=== PATIENT | female | born 1985 | race Caucasian/White ===

== ENCOUNTER 2019-04-16 16:19 | Emergency (ER) | payer OTHER ==
[~2019-04-16] VITALS: Ht 167.6 cm; Wt 112.9 kg
[2019-04-16 16:48] VITALS: BP 122/80
--- NOTE | 2019-04-16 18:03 | NUR ---
C/O BURNING PAIN STARTED 5 DAYS AGO, THEN BLISTERS APPEARED 3 DAYS AGO--- YESTERDAY NOTED SAME ON PLANTAR FEET DENIES WORKING OR USING CHEMICALS OR ANY NEW PROJECTS WHICH REQUIRE GLUE OR ANY SUBSTANCES--- ADMITS HAS AN OFFICE JOB WITH ANGIE COVARRUBIAS'S HAS BEEN SEEN IN 2 OTHER HOSPITALS--
[2019-04-16] MEDS ORDERED: NACL 0.9% 1,000 ML IV ONE (18:20)
--- NOTE | 2019-04-16 18:42 | NUR ---
MENDOZA KAYDEN BLOOD FOR LAB AT IV START---BLOOD HANDED TO LAB
[2019-04-16 19:06] LABS: BASOPHILS % (AUTO) 0.6 % (0.0-2.0); EOSINOPHILS # (AUTO) 0.2 K/uL (0-0.4); EOSINOPHILS % (AUTO) 2.1 % (0.0-4.0); HEMATOCRIT 38.3 % (36-48); HEMOGLOBIN 12.9 g/dL (12.0-16.0); LYMPHOCYTES # (AUTO) 2.8 K/uL (2.5-16.5); LYMPHOCYTES % (AUTO) 34.3 % (20.5-51.1); MEAN CORPUSCULAR HEMOGLOBIN 28 pg (27-31); MEAN CORPUSCULAR HGB CONC 34 g/dL (33-37); MEAN CORPUSCULAR VOLUME 82.2 fL (80-94); MONOCYTES # (AUTO) 0.7 K/uL (0.8-1.0); MONOCYTES % (AUTO) 8.2 % (1.7-9.3); NEUTROPHILS # (AUTO) 4.4 K/uL (1.8-7.7); NEUTROPHILS % (AUTO) 54.8 % (42.2-75.2); PLATELET COUNT (AUTO) 188 K/uL (140-450); RED BLOOD CELL COUNT(AUTO) 4.66 MIL/uL (4.20-5.40); RED CELL DISTRIBUTION WIDTH 15.5 % (11.6-13.7); WHITE BLOOD COUNT (AUTO) 8.1 K/uL (4.8-10.8)
[2019-04-16 19:21] LABS: ANION GAP 15.6 (8-16); CARBON DIOXIDE 24.5 mmol/L (21-32); CREATININE 0.7 mg/dL (0.6-1.3); POTASSIUM 4.1 mmol/L (3.5-5.1)
[2019-04-16 19:23] LABS: PROTHROMBIN TIME 9.5 secs (10.8-13.4)
[2019-04-16 19:27] LABS: ALBUMIN 3.5 g/dL (3.4-5.0); TOTAL BILIRUBIN 1.1 mg/dL (0.0-1.0)
--- NOTE | 2019-04-16 19:48 | NUR ---
RECEIVED REPORT FROM CONFIGURATION RELEASE MANAGER; PT AAOX4 DENIES ACUTE PAIN/SOB. PT HAS MULTIPLE RED DISCOLORED SPOTS ON HANDS AND FEET. DENIES ALLEGIES. DENIES NEW MEDICATION/FOOD/CHEMICAL EXPOSURE. LISA LOCKED IN LOWEST POSITION. WILL CONTINUE TO OBSERVE.
[2019-04-16] MEDS ORDERED: methylPREDNISolone SS 125 MG/2 ML VIAL IVP ONE (20:05)
--- NOTE | 2019-04-16 20:42 | NUR ---
Patient discharged with v/s stable. Written and verbal after care instructions given and explained BY DR PARRA. Patient alert, oriented and verbalized understanding of instructions. Ambulatory with steady gait. All questions addressed prior to discharge BY DR PARRA. ID band removed. Patient advised to follow up with PMD. Rx of PREDNISONE given. Patient educated on indication of medication including possible reaction and side effects BY DR PARRA. Opportunity to ask questions provided and answered.
[2019-04-16] MEDS ORDERED: DOXYCYCLINE 100 MG in DEXTROSE 5% 100 ML IV SCH (21:00)
[2019-04-16 21:19] VITALS: BP 136/72
[2019-04-20 10:01] LABS: RAPID PLASMA REAGIN NON-REACTIVE (Non Reactiv)
== END 2019-04-16 20:42 | disposition home or self-care (01) ==
LOC: MED 16:19
DX: I77.6 Arteritis, unspecified (principal); E11.40 Type 2 diabetes mellitus with diabetic neuropathy, unspecified
CPT/HCPCS: 36415; 80053; 83605; 84703; 85025; 85610; 86592; 87040; 96365; 96375; 99283; J2930; J3490; J7030; J7060

== ENCOUNTER 2019-05-29 22:56 | Emergency (ER) | payer OTHER ==
[~2019-05-29] VITALS: Ht 167.6 cm; Wt 111.1 kg
[2019-05-29 23:01] VITALS: BP 151/84
--- NOTE | 2019-05-29 23:06 | NUR ---
PT AMBULATED TO LOBBY WITH STEADY GAIT.
--- NOTE | 2019-05-29 23:39 | NUR ---
33 Y/O FEMALE PRESENTS TO ED, C/O PAIN LOCATED UNDER RIGHT BREAST. PT STATES LUMPS STARTED APPEARING ON TUESDAY AND HAS INCREASED SINCE THEN ALONG WITH MULTIPLE LUMPS. STATES PAIN WORSENS WHEN PT MOVES ARM UP. PT DENIES ANY ABNORMAL DISCHARGE. DENIES TAKING ANY MEDICATIONS FOR PAIN. PT DENIES ANY N/V/D. NO SOB/CHEST PAIN NOTED. PT AT STABLE CONDITION. ERMD AWARE. WILL CONTINUE TO MONITOR.
[2019-05-30] MEDS: IBUPROFEN 800 MG TAB PO ONE (00:09)
[2019-05-30] MEDS: SULFAMETH/TRIMETH DS 800/160MG 1 TAB PO ONE (00:09)
[2019-05-30] MEDS: CEPHALEXIN 500 MG CAP PO ONE (00:10)
[2019-05-30 00:15] VITALS: BP 147/75
--- NOTE | 2019-05-30 00:15 | NUR ---
PT DISCHARGED WITH PAPERWORK. RX KEFLEX, MOTRIN, BACTRIM. EDUCATED PT REGARDING MEDICATIONS AND S/E. EDUCATED PT REGARDING D/C DIAGNOSIS AND INSTRUCTIONS. PT VERBALIZED UNDERSTANDING OF TEACHING. TOLD PT TO FOLLOW UP WITH PCP AND WHEN TO RETURN TO ED. PT STABLE CONDITION. ALL QUESTIONS ANSWERED.
== END 2019-05-30 00:15 | disposition home or self-care (01) ==
LOC: MED 22:56
DX: N61.0 Mastitis without abscess (principal); E11.9 Type 2 diabetes mellitus without complications
CPT/HCPCS: 99284

== ENCOUNTER 2020-06-10 19:54 | Observation (INO) | payer OTHER, SELFPAY ==
[~2020-06-10] VITALS: Ht 167.6 cm; Wt 111.1 kg
--- NOTE | 2020-06-10 19:58 | NUR ---
Jevon zuniga in [facility] - 06/10/20 at 2204 by MAYRA RN AT [facility] [place]
[2020-06-10 21:08] VITALS: BP 151/95
--- NOTE | 2020-06-10 21:08 | NUR ---
PT TAKEN TO ER BED 6 W/ STEADY GAIT.
--- NOTE | 2020-06-10 21:13 | NUR ---
HORACE DELGADO AT BEDSIDE FOR MEDICAL EVALUATION
--- NOTE | 2020-06-10 21:15 | NUR ---
34 Y/O FEMALE PRESENTED TO THE ED C/O 04/19 PAIN IN HER RIGHT HIPX4 DAYS, PT STATES THE PAIN SHARP AND SHOOTING WHEN AMBULATING. PT DENIES INJURY OR TRAUMA TO THE AREA. NO VISIBLE REDNESS OR SWELLING TO THE AREA. RIGHT HIP AREA IS TENDER TO TOUCH. CMS INTACT. +2 PEDAL PULSES. PT C/O FEVER THAT STARTED TUESDAY. CLEAR LUNG SOUNDS BILATERALLY. DENIES N/V DIARRHEA. PT IS NOT IN ANY ACUTE DISTRESS AT THIS TIME PMH: HERBERT CANELA
--- NOTE | 2020-06-10 21:25 | NUR ---
BLOOD CULTURES AND LABS COLLECTED AND HANDED TO LAB.
[2020-06-10 21:35] LABS: BASOPHILS % (AUTO) 0.3 % (0.0-2.0); EOSINOPHILS # (AUTO) 0.1 K/uL (0-0.4); EOSINOPHILS % (AUTO) 0.9 % (0.0-4.0); HEMATOCRIT 37.4 % (36-48); HEMOGLOBIN 12.7 g/dL (12.0-16.0); LYMPHOCYTES # (AUTO) 2.2 K/uL (2.5-16.5); LYMPHOCYTES % (AUTO) 20.4 % (20.5-51.1); MEAN CORPUSCULAR HEMOGLOBIN 28 pg (27-31); MEAN CORPUSCULAR HGB CONC 34 g/dL (33-37); MEAN CORPUSCULAR VOLUME 81.8 fL (80-94); NEUTROPHILS # (AUTO) 7.6 K/uL (1.8-7.7); NEUTROPHILS % (AUTO) 69.4 % (42.2-75.2); PLATELET COUNT (AUTO) 223 K/uL (140-450); RED BLOOD CELL COUNT(AUTO) 4.57 MIL/uL (4.20-5.40); RED CELL DISTRIBUTION WIDTH 15.8 % (11.6-13.7)
--- NOTE | 2020-06-10 21:48 | NUR ---
ambulated to ed restroom with steady gait
--- NOTE | 2020-06-10 21:51 | NUR ---
PT AMBULATED BACK TO ED BED 6 WITH STEADY GAIT
[2020-06-10 21:53] LABS: PROTHROMBIN TIME 10.4 secs (10.8-13.4)
--- NOTE | 2020-06-10 21:58 | NUR ---
RN AT BEDSIDE FOR EKG
[2020-06-10 21:59] LABS: ALBUMIN 3.6 g/dL (3.4-5.0); ANION GAP 12.4 (8-16); CARBON DIOXIDE 27.5 mmol/L (21-32); CREATININE 1.1 mg/dL (0.6-1.3); POTASSIUM 3.9 mmol/L (3.5-5.1); TOTAL BILIRUBIN 1.7 mg/dL (0.0-1.0)
--- NOTE | 2020-06-10 22:11 | NUR ---
pt pulse ox 98% on Room Air , no oxygen needed at this time.
--- NOTE | 2020-06-10 22:13 | NUR ---
XRAY AT BEDSIDE
--- NOTE | 2020-06-10 22:14 | NUR ---
GLUCOSE-490 ERPA PATEL MADE AWARE
[2020-06-10] MEDS ORDERED: NACL 0.9% 1,000 ML IV ONE ×2 (22:15→23:50)
--- NOTE | 2020-06-10 22:41 | NUR ---
COVID SWAB ÁNGEL PEREZ
--- NOTE | 2020-06-10 22:47 | NUR ---
ÁNGEL FALCON WALKED OVER TO LAB
--- NOTE | 2020-06-10 23:15 | NUR ---
LACTIC ACID-2.8 ERMD DANNY MADE AWARE
--- NOTE | 2020-06-10 23:44 | NUR ---
jasbir roque at bedside for re-evaluation
[2020-06-10] MEDS ORDERED: MORPHINE SULFATE 4 MG/ML SYR IVP ONE (23:45)
--- NOTE | 2020-06-11 00:05 | NUR ---
LAB AT BEDSIDE
--- NOTE | 2020-06-11 00:20 | NUR ---
PT TAKEN TO CT VIA W/C
--- NOTE | 2020-06-11 00:30 | NUR ---
PT RETURNED TO CT VIA W/C
--- NOTE | 2020-06-11 00:39 | NUR ---
HORACE BRACKEN AT BEDSIDE WITH ULTRASOUND MACHINE
--- NOTE | 2020-06-11 01:15 | NUR ---
PT IS LAYING ON HER LEFT SIDE. THIS IS THE MOST COMFORTABLE POSITION FOR THE PT AT THIS TIME. PT IS CONNECTED TO THE ROTARY ROCK DRILLING MACHINE OPERATOR. PT IS ON HER PHONE AND NOT IN ANY ACUTE DISTRESS AT THIS TIME. WILL CONTINUE TO MONITOR.
[2020-06-11] MEDS ORDERED: PIPERACILLIN/TAZOBACTAM 3.375 GM in DEXTROSE 5% 50 ML IV ONE (01:55)
[2020-06-11] MEDS ORDERED: VANCOMYCIN 1,000 MG in DEXTROSE 5% 250 ML IV ONE (01:55)
--- NOTE | 2020-06-11 01:56 | NUR ---
ERMD AT BEDSIDE FOR MEDICAL EVALUATION.
[2020-06-11] MEDS ORDERED: PIPERACILLIN/TAZOBACTAM 3.375 GM VIAL IV ONE (02:02)
--- NOTE | 2020-06-11 02:14 | NUR ---
[facility]OKE W[facility] FOR VERIFICATION OF MEDICATION.
--- NOTE | 2020-06-11 02:25 | NUR ---
PT IS SITTING UPRIGHT WITH HOB ELEVATED. THIS IS THE MOST COMFORTABLE POSITION FOR THE PT AT THIS TIME. PT IS CONNECTED TO THE TRANSITIONS RN CARE COORDINATOR SAO2@99% ROOM AIR. PT IS ON HER PHONE AND NOT IN ANY ACUTE DISTRESS AT THIS TIME. WILL CONTINUE TO MONITOR.
[2020-06-11] MEDS ORDERED: VANCOMYCIN 1,000 MG VIAL ONE (02:33)
--- NOTE | 2020-06-11 02:37 | NUR ---
SPOKE WITH BRYANNA THE SPECIAL EVENTS DRIVER FROM [facility]. SHE IS UNABLE TO PROVIDE ME WITH AN AUTHORIZATION NUMBER AT THIS TIME. DR. DELGADO STATED THAT THE PT IS UNSTABLE FOR DISCHARGE THEREFORE THEIR DR WILL CALL FOR CLINICAL CONFIRMATION THAT THE PT IS CURRENTLY UNSTABLE FOR TRANSPORT
[2020-06-11] MEDS ORDERED: MORPHINE SULFATE 4 MG/ML SYR IVP ONE (02:50)
[2020-06-11] MEDS ORDERED: KETOROLAC 30 MG/ML VIAL IVP ONE (02:50)
--- NOTE | 2020-06-11 03:30 | NUR ---
PT IS SITTING ON THE CHAIR BEDSIDE THE BED WITH HER FEET RAISED ON THE BED. PT IS ON HER PHONE AND NOT IN ANY ACUTE DISTRESS AT THIS TIME. THIS IS THE MOST COMFORTABLE POSITION FOR THE PT AT THIS TIME. PT IS CONNECTED TO THE EMERGENCY MANAGEMENT SPECIALIST. WILL CONTINUE TO MONITOR.
[2020-06-11] MEDS ORDERED: FLUO10CA21 PO (03:31)
[2020-06-11] MEDS ORDERED: ACETAMINOPHEN 325 MG TAB PO PRN (03:55)
[2020-06-11] MEDS ORDERED: ONDANSETRON 4 MG/2 ML VIAL IVP PRN (03:55)
[2020-06-11] MEDS ORDERED: VANCOMYCIN PER PHARMACY MC PRN (03:55)
[2020-06-11] MEDS ORDERED: MORPHINE SULFATE 2 MG/ML SYR IVP PRN (03:55)
--- NOTE | 2020-06-11 04:01 | NUR ---
NOVAL (ORAL) PCR SWAB COLLECTED AND SENT TO LAB.
--- NOTE | 2020-06-11 05:00 | NUR ---
PT IS SITTING ON THE CHAIR BEDSIDE THE BED WITH HER FEET RAISED ON THE BED. PT IS ON HER PHONE AND NOT IN ANY ACUTE DISTRESS AT THIS TIME. PT IS AWAITING NEWS ON IF SHE WILL BE TRANSFERED OR WILL BE ADMITTED HER TO MED SURG. THIS IS THE MOST COMFORTABLE POSITION FOR THE PT AT THIS TIME. PT IS CONNECTED TO THE INSURANCE CONSULTANT. WILL CONTINUE TO MONITOR.
--- NOTE | 2020-06-11 06:10 | NUR ---
PT IS LAYING ON HER BACK WITH HOB ELEVATED. PT IS RESTING WITH VISIBLE RISE AND FALL OF CHEST NOTED. THIS IS THE MOST COMFORTABLE POSITION FOR THE PT AT THIS TIME. PT IS CONNECTED TO THE FIELD ACCOUNT MANAGER, SAO2 @96%. WILL CONTINUE TO MONITOR.
--- NOTE | 2020-06-11 07:13 | NUR ---
REPORT GIVEN TO YARI RAMOS FOR TRANSFER OF CARE.
--- NOTE | 2020-06-11 07:14 | NUR ---
Transfer of care at this time from YARI Pagan
--- NOTE | 2020-06-11 07:23 | NUR ---
Pt VS WNL, pt denies pain at this time. All needs met at this time.
--- NOTE | 2020-06-11 08:32 | NUR ---
PT SITTING UP IN BED EATING BREAKFAST.
--- NOTE | 2020-06-11 08:52 | NUR ---
Dr. Venegas is evaluating the patient at bedside.
--- NOTE | 2020-06-11 09:48 | NUR ---
US at bedside for exam.
--- NOTE | 2020-06-11 10:14 | NUR ---
PT REQUESTING TO GET BRUSH FROM CAR, PT AMBULATED TO CAR WITH CYNTHIA AND RETURNED TO BED 6..
--- NOTE | 2020-06-11 11:11 | NUR ---
PT ASLEEP IN BED. RR EVEN AND UNLABORED, BED IN LOWEST POSITION. SIDE RAIL UP X 1.
--- NOTE | 2020-06-11 11:24 | NUR ---
SOCIAL WORK NOTE: Patient's Orientation Unable To Assess Information Provided By THI SOW - MOTHER Comments SW WAS UNABLE TO MEET PATIENT AT BEDSIDE DUE TO MEDICAL CONDITION. SW COMPLETED ASSESSMENT WITH PATIENT'S MOTHER. SW VERIFIED DEMOGRAPHICS. Gear Roller, Realtionship and Phone Number THI LUIS [phone] Healthcare Power of Tunnel Kiln Firer No Does Patient Have a POLST No Identifying Problems No Social Work Triggers Is A Social Work Consult Needed No Mandate Report Filed No Explanation Of Identifying Problems PATIENT IS A 34-YEAR-OLD FEMALE ADMITTED FOR RIGHT HIP PAIN. PATIENT HAS NO PMHX. PER MOTHER, PATIENT HAS NO HISTORY OF MENTAL HEALTH OR SUBSTANCE ABUSE. Admitted From Home Pre-Admission Level Of Functioning Status Independent/Ambulatory Prior Resources/Services Used In Last 12 Months No Prior Resources Used Prior DME No Prior DME Used Dialysis Comments N/A Living Situation Apartment Lives With Spouse Patient Had Caregiver No Home Support No Caregiver Issues Financial Issues No Known Financial Issue Referral To The Financial Counselor Needed No Factors/Needs No D/C Needs Identified Explanation And Or Other Factors Affecting/Possible DC Needs PATIENT'S MOTHER STATED SHE WOULD PROVIDE TRANSPORTATION FOR PATIENT. Discharge Plan Comments TENTATIVE DISCHARGE PLAN IS FOR PATIENT TO RETURN HOME. DC Plan Status Initiated
--- NOTE | 2020-06-11 11:44 | NUR ---
DR. WEBSTER CALLED AT [phone] WITH PTS US RESULTS. PER DR. WEBSTER "NOTHING TO BE DONE SURGICALLY, PT CAN FOLLOW UP OUTPATIENT."
[2020-06-11] MEDS ORDERED: PIPERACILLIN/TAZOBACTAM 3.375 GM in DEXTROSE 5% 50 ML IV SCH (12:00)
--- NOTE | 2020-06-11 12:00 | NUR ---
PT SITTING UP IN BED EATING LUNCH. ALL NEEDS MET AT THIS TIME.
--- NOTE | 2020-06-11 12:09 | NUR ---
PT REPORTING 4/10 HIP PAIN.
--- NOTE | 2020-06-11 12:27 | NUR ---
MORPHINE GIVEN IVP.
--- NOTE | 2020-06-11 15:29 | NUR ---
LATE ENTRY: DISCHARGE PLANNING: RECEIVED A CALL FROM [facility] OF [facility] [phone], INQUIRING ABOUT THIS PATIENT. UPDATED HER OF THE PATIENT'S CONDITION. SHE STATED THEY DID NOT RECEIVE ANY CLINICALS AND CAN FAX IT TO [phone]. CLINICALS AND FACE SHEET SENT TO THE PROVIDED NUMBER. [facility] OF [facility] CONFIRMED THAT SHE RECEIVED THE CLINICALS AND FACE SHEET. PROVIDED HER UPDATES ON THE US OF RIGHT HIP, WHICH CAME BACK NEGATIVE. SHE STATED WHAT ELSE ARE WE DOING FOR THIS PATIENT AND EVERYTHING SEEMS NEGATIVE. INFORMED HER THAT PER DR. DSOUZA, HE WANTS TO MONITOR THE PATIENT AND THE RESULTS WHEN HE MADE HIS ROUNDS WAS STILL PENDING. PER [facility] SHE WILL REACH OUT TO THEIR CLIENT RELATIONSHIP EXECUTIVE IF PATIENT NEEDS TO BE TRANSFERRED OUT TO AN IN [facility] AND WILL CALL ME BACK. WILL FOLLOW UP. Addendum: 06/11/20 at 1553 by Alejandra Lubin CM RESULTS OF US OF RIGHT HIP RELAYED TO DR. DSOUZA. PER DR. DSOUZA WILL DC PATIENT HOME. LEFT MESSAGE TO [facility] OF [facility]. WILL FOLLOW UP. Addendum: 06/11/20 at 1555 by Alejandra B. Berdijo CM CONT: PER KARL GREEN, NO AUTH AVAILABLE YET REVIEW IS STILL PENDING.
[2020-06-11] MEDS ORDERED: HYDR-5122 PO (15:41)
[2020-06-11] MEDS ORDERED: VANCOMYCIN HCL IV SCH (16:00)
[2020-06-11] MEDS ORDERED: NACL 0.9% IV SCH (16:00)
[2020-06-11 16:04] VITALS: BP 123/78
== END 2020-06-11 17:00 | disposition home or self-care (01) ==
LOC: MED 19:54 → MMU 06-11 03:57
PROVIDERS: ADMIT Hospitalist; ATTEND Hospitalist
DX: M25.551 Pain in right hip (principal); Z20.828 Contact with and (suspected) exposure to other viral communicable diseases; E11.9 Type 2 diabetes mellitus without complications; E66.9 Obesity, unspecified; Z79.899 Other long term (current) drug therapy; Z68.39 Body mass index [BMI] 39.0-39.9, adult
CPT/HCPCS: 36415; 71045; 73502; 73701; 76881; 80053; 82550; 82553; 83605; 85025; 85610; 85651; 85730; 86140; 87040; 87086; 87426; 93005; 96361; 96365; 96366; 96367; 96375; 96376; 99285; G0378; J1885; J2270; J2543; J3370; J7060; Q9967; U0003; J7030

== ENCOUNTER 2020-06-12 02:35 | Emergency (ER) | payer OTHER, SELFPAY ==
[~2020-06-12] VITALS: Ht 167.6 cm; Wt 111.1 kg
[~2020-06-12 02:35] MED LIST: FLUO10CA21 PO; HYDR-5122 PO
[2020-06-12 02:40] VITALS: BP 132/76
--- NOTE | 2020-06-12 02:43 | NUR ---
TO BED # 11 AMBULATORY
--- NOTE | 2020-06-12 03:01 | NUR ---
34 Y/O FEMALE C/O R HIP PAIN, SINCE TUESDAY. WAS DISCHARGED FROM [facility] THIS AM. PT STATES "IT DEFINITELY FEELS LIKE SOMETHING IS BROKEN." PT STATES 10/10 PAIN AT THIS TIME. PAIN WAS WORSENING WHEN TRYING TO SLEEP. PT ALSO STATES N/V AND A NOSEBLEED THAT STARTED TONIGHT. MEDHX: HERBERT CANELA
--- NOTE | 2020-06-12 03:04 | NUR ---
DR KIRKPATRICK AT BEDSIDE EXAMINING PT
[2020-06-12] MEDS ORDERED: NACL 0.9% 1,000 ML IV ONE (03:20)
[2020-06-12] MEDS ORDERED: fentaNYL citrate 0.05 MG/ML VIAL IVP ONE (03:20)
--- NOTE | 2020-06-12 03:28 | NUR ---
LAB AT BEDSIDE
[2020-06-12 03:36] LABS: BASOPHILS # (AUTO) 0.2 K/uL (0.00-0.22); EOSINOPHILS # (AUTO) 0.1 K/uL (0-0.4); EOSINOPHILS % (AUTO) 0.6 % (0.0-4.0); HEMATOCRIT 31.8 % (36-48); HEMOGLOBIN 10.9 g/dL (12.0-16.0); LYMPHOCYTES # (AUTO) 1.5 K/uL (2.5-16.5); LYMPHOCYTES % (AUTO) 15.7 % (20.5-51.1); MEAN CORPUSCULAR HEMOGLOBIN 28 pg (27-31); MEAN CORPUSCULAR HGB CONC 34 g/dL (33-37); MEAN CORPUSCULAR VOLUME 81.6 fL (80-94); MONOCYTES # (AUTO) 0.7 K/uL (0.8-1.0); MONOCYTES % (AUTO) 7.8 % (1.7-9.3); NEUTROPHILS # (AUTO) 7.1 K/uL (1.8-7.7); NEUTROPHILS % (AUTO) 73.9 % (42.2-75.2); PLATELET COUNT (AUTO) 182 K/uL (140-450); RED CELL DISTRIBUTION WIDTH 15.3 % (11.6-13.7); WHITE BLOOD COUNT (AUTO) 9.5 K/uL (4.8-10.8)
[2020-06-12 03:53] LABS: PROTHROMBIN TIME 10.8 secs (10.8-13.4)
[2020-06-12 03:55] LABS: ALBUMIN 2.9 g/dL (3.4-5.0); ANION GAP 14.4 (8-16); CARBON DIOXIDE 24.6 mmol/L (21-32); CREATININE 0.6 mg/dL (0.6-1.3); TOTAL BILIRUBIN 1.3 mg/dL (0.0-1.0)
--- NOTE | 2020-06-12 04:04 | NUR ---
PT RATES PAIN 6/10 AFTER MEDS. RESTING MORE COMFORTABLY
--- NOTE | 2020-06-12 04:21 | NUR ---
MD KIRKPATRICK AT BEDSIDE SPEAKING WITH PT
--- NOTE | 2020-06-12 04:42 | NUR ---
CRUTCHES FITTED TO PT HEIGHT AND ARM LENGTH. PT GIVEN INSTRUCTION ON PROPER USE OF CRUTCHES, PT DEMONSTRATED SAFE USE FOR APPROXIMATELY 40 FEET. PT STATED SHE FELT COMFORTABLE WITH USE.
[2020-06-12 04:44] VITALS: BP 132/76
--- NOTE | 2020-06-12 04:50 | NUR ---
Patient discharged with v/s stable. Written and verbal after care instructions given and explained. Patient alert, oriented and verbalized understanding of instructions. Wheel Chair Assisted with to car. All questions addressed prior to discharge. ID band removed. Patient advised to follow up with PMD. Rx of TRAMADOL, MOTIRN, AND ZOFRAN given. Patient educated on indication of medication including possible reaction and side effects. Opportunity to ask questions provided and answered.
== END 2020-06-12 04:50 | disposition home or self-care (01) ==
LOC: MED 02:35
DX: M25.551 Pain in right hip (principal); R03.0 Elevated blood-pressure reading, without diagnosis of hypertension; E11.9 Type 2 diabetes mellitus without complications; Z79.899 Other long term (current) drug therapy
CPT/HCPCS: 36415; 80053; 82550; 83605; 85025; 85610; 85651; 85730; 86140; 96361; 96374; 99283; J3010; J7030

== ENCOUNTER 2020-07-26 19:38 | Emergency (ER) | payer OTHER, SELFPAY ==
[~2020-07-26] VITALS: Ht 167.6 cm; Wt 108.9 kg
[2020-07-26 19:44] VITALS: BP 118/86
--- NOTE | 2020-07-26 19:46 | NUR ---
TO BED # 01 AMBULATORY
--- NOTE | 2020-07-26 19:55 | NUR ---
RECEIVED IN BED 1 WITH C/O SEVERE BACK PAIN. "THE PAIN IS MORE THAN A 10, ITS SO MUCH IT MAKES ME VOMIT"
[2020-07-26] MEDS ORDERED: HYDROcodone/APAP 5/325 MG 1 TAB TAB PO ONE (20:25)
[2020-07-26] MEDS ORDERED: ONDANSETRON 4 MG ODT PO ONE (20:25)
[2020-07-26] MEDS ORDERED: diazePAM 5 MG TAB PO ONE (20:25)
[2020-07-26] MEDS ORDERED: KETOROLAC 30 MG/ML VIAL IM ONE (20:25)
[2020-07-26 21:45] VITALS: BP 128/86
--- NOTE | 2020-07-26 21:45 | NUR ---
DISCHARGED AT THIS TIME. PAIN HAS DECREASED ONLY SLIGHTLY. D/C'D AMBULATORY EITH ACI AND RX IN POSESSION. UNDERSTANDING EXPRESSED.
--- NOTE | 2020-07-26 21:54 | NUR ---
Patient discharged with v/s stable. Written and verbal after care instructions given and explained. Patient alert, oriented and verbalized understanding of instructions. Ambulatory with steady gait. All questions addressed prior to discharge. ID band removed. Patient advised to follow up with PMD. Rx of NORCO AND VALIUM given. Patient educated on indication of medication including possible reaction and side effects. Opportunity to ask questions provided and answered.
== END 2020-07-26 21:45 | disposition home or self-care (01) ==
LOC: MED 19:38
DX: S39.012A Strain of muscle, fascia and tendon of lower back, initial encounter (principal); E11.9 Type 2 diabetes mellitus without complications; Z79.899 Other long term (current) drug therapy; X58.XXXA Exposure to other specified factors, initial encounter; Y93.89 Activity, other specified; Y92.89 Other specified places as the place of occurrence of the external cause; Y99.8 Other external cause status
CPT/HCPCS: 96372; 99284; J1885; Q0162

== ENCOUNTER 2020-07-28 17:33 | Inpatient (IN) | payer OTHER, SELFPAY ==
[~2020-07-28] VITALS: Ht 167.6 cm; Wt 108.9 kg
[2020-07-28 17:47] VITALS: BP 117/64
--- NOTE | 2020-07-28 17:58 | NUR ---
Patient ambulated to bed 1. RN evaluating patient at bedside.
[2020-07-28] MEDS ORDERED: LORazepam 2 MG/ML VIAL IVP ONE (18:15)
[2020-07-28] MEDS ORDERED: NACL 0.9% 500 ML IV SCH (18:15)
[2020-07-28] MEDS ORDERED: MORPHINE SULFATE 2 MG/ML SYR IVP ONE (18:15)
[2020-07-28] MEDS ORDERED: ONDANSETRON 4 MG/2 ML VIAL IVP ONE (18:15)
[2020-07-28 18:40] LABS: BASOPHILS % (AUTO) 0.2 % (0.0-2.0); EOSINOPHILS % (AUTO) 0.2 % (0.0-4.0); HEMATOCRIT 32.9 % (36-48); HEMOGLOBIN 11.1 g/dL (12.0-16.0); LYMPHOCYTES # (AUTO) 1.4 K/uL (2.5-16.5); LYMPHOCYTES % (AUTO) 14.2 % (20.5-51.1); MEAN CORPUSCULAR HEMOGLOBIN 27 pg (27-31); MEAN CORPUSCULAR HGB CONC 34 g/dL (33-37); MEAN CORPUSCULAR VOLUME 80.1 fL (80-94); MONOCYTES # (AUTO) 0.5 K/uL (0.8-1.0); MONOCYTES % (AUTO) 5.5 % (1.7-9.3); NEUTROPHILS % (AUTO) 79.9 % (42.2-75.2); PLATELET COUNT (AUTO) 250 K/uL (140-450); RED CELL DISTRIBUTION WIDTH 17.1 % (11.6-13.7)
--- NOTE | 2020-07-28 19:00 | NUR ---
IS IN CT
[2020-07-28 19:03] LABS: PROTHROMBIN TIME 9.9 secs (10.8-13.4)
[2020-07-28 19:05] LABS: ANION GAP 15.2 (8-16); CARBON DIOXIDE 25.8 mmol/L (21-32); CREATININE 0.8 mg/dL (0.6-1.3); TOTAL BILIRUBIN 0.8 mg/dL (0.0-1.0)
--- NOTE | 2020-07-28 20:02 | NUR ---
AMBULATED TO BR FOR UA
[2020-07-28] MEDS ORDERED: MORPHINE SULFATE 4 MG/ML SYR IVP ONE (20:05)
[2020-07-28] MEDS ORDERED: KETOROLAC 30 MG/ML VIAL IVP ONE (20:05)
[2020-07-28] MEDS ORDERED: diphenhydrAMINE 50 MG/ML VIAL IVP ONE (20:05)
--- NOTE | 2020-07-28 20:30 | NUR ---
PAIN NOW RATED 10/10. MEDICATED ORDERED
[2020-07-28 20:42] LABS: APPEARANCE,URINE CLOUDY (CLEAR); BILIRUBIN,URINE 1+ (NEGATIVE); BLOOD, URINE 3+ (NEGATIVE); COLOR,URINE RED (YELLOW); LEUKOCYTE ESTERASE ,URINE TRACE (NEGATIVE); NITRITE, URINE POSITIVE (NEGATIVE); UGLUCOSE 3+ (NEGATIVE)
[2020-07-28 20:46] LABS: RBC,URINE >100 /HPF (0-5)
[2020-07-28 21:11] LABS: BARBITURATE, URINE NEGATIVE ng/ml (NEG <=200); BENZODIAZEPINE, URINE POSITIVE ng/mL (NEG <=200); CANNABINOID, URINE NEGATIVE ng/mL (NEG <=50); COCAINE, URINE NEGATIVE ng/mL (NEG <=300); OPIATE, URINE POSITIVE ng/mL (NEG <=2000); PHENCYCLIDINE SCREEN,URINE NEGATIVE ng/mL (NEG <=25)
--- NOTE | 2020-07-28 21:20 | NUR ---
CONSENT SIGNED FOR CT ANGIO
[2020-07-28] MEDS ORDERED: cefTRIAXone 1,000 MG VIAL ONE (21:48)
--- NOTE | 2020-07-28 22:20 | NUR ---
PT RETURN FROM CT
[2020-07-29] MEDS ORDERED: HYDROmorphone 1 MG/ML AMP IVP ONE (01:05)
--- NOTE | 2020-07-29 01:05 | NUR ---
C/O PAIN RETURNING AT 10/10. IS CRYING AND DRY HEAVING. MEDICATED ORDERED
--- NOTE | 2020-07-29 02:40 | NUR ---
RUMA SWAB OBTAINED AND SENT TO LAB
--- NOTE | 2020-07-29 04:00 | NUR ---
RESTING IN BED WITH EYES CLOSED. RESPIRATIONS REGULAR AND UNLABORED.
[2020-07-29] MEDS ORDERED: ONDANSETRON 4 MG/2 ML VIAL IVP PRN (04:50)
--- NOTE | 2020-07-29 06:04 | NUR ---
ROOM 102B READY. REPORT CALLED TO YARI LARIOS
--- NOTE | 2020-07-29 06:20 | NUR ---
Patient will be admitted to care of YARI LARIOS. Will go to room 102B. Belongings list completed. Report to YARI LARIOS.
--- NOTE | 2020-07-29 06:25 | NUR ---
RECEIVED PATIENT FROM ER VIA WHEELCHAIR. PATIENT IS ALERT AND ABLE TO MAKE NEEDS KNOWN. RESPIRATIONS EVEN, UNLABORED. VITAL SIGNS STABLE. ORIENTED TO ROOM AND CALL LIGHT SYSTEM. PATIENT HAS JUST VOIDED AND IS CURRENTLY AMBULATING AROUND THE ROOM. PATIENT IS VOCALIZING HER PAIN BUT STATED SHE JUST WANTS TO LAY DOWN IN THE BED AT THIS TIME. CALL LIGHT PLACED WITHIN REACH. FREQUENT VISUAL ROUNDS MADE BY ALL STAFF.
[2020-07-29 07:00] VITALS: BP 142/75
--- NOTE | 2020-07-29 07:35 | NUR ---
ENDORSED PATIENT TO AM SHIFT NURSE FOR CONTINUITY OF CARE.
--- NOTE | 2020-07-29 07:40 | NUR ---
RECEIVED PT FROM NIGHTS SHIFT NURSE PT IS CRYING AND GRIMACING IN PAIN AT HER BACK, IV LINE NOTED ON THE LEFT AC G. 18 ON SALINE LOCK,SAFETY PRECAUTION IN PLACE, V/S TAKEN AND IS STABLE.PT IS ON ROOM AIR AND SKIN IS INTACT. WILL MEDICATE AND MONITOR PT.
[2020-07-29] MEDS: MORPHINE SULFATE 2 MG/ML SYR IVP PRN ×2 (08:08→12:19)
--- NOTE | 2020-07-29 08:08 | NUR ---
PT WAS GIVEN PAIN MEDICATION, V/S CHECKED. WILL RE-ASSESS PAIN AND MONITOR PT.
--- NOTE | 2020-07-29 08:59 | NUR ---
PATIENT HAS BEEN SCREENED AND CATEGORIZED MODERATE NUTRITION RISK. PATIENT WILL BE SEEN WITHIN 3-5 DAYS OF ADMISSION. 07/31/20 08/02/[address]
--- NOTE | 2020-07-29 10:21 | NUR ---
SOCIAL WORK NOTE: Patient's Orientation Person Situation Place Time Information Provided By PATIENT Comments SW WAS UNABLE TO MEET PATIENT AT BEDSIDE. SW COMPLETED ASSESSMENT WITH PATIENT TELEPHONICALLY. Floorworker Lasting, Realtionship and Phone Number THI LUIS [phone] [facility] Power of Ethanol Operator No Does Patient Have a POLST No Identifying Problems No Social Work Triggers Is A Social Work Consult Needed No Mandate Report Filed No Explanation Of Identifying Problems PATIENT IS A 35-YEAR-OLD FEMALE ADMITTED FOR BACK PAIN. PATIENT HAS PMHX OF DIABETES. PATIENT REPORTED NO HISTORY OF MENTAL HEALTH OR SUBSTANCE ABUSE. Admitted From Home Pre-Admission Level Of Functioning Status Independent/Ambulatory Prior Resources/Services Used In Last 12 Months No Prior Resources Used Prior DME No Prior DME Used Dialysis Comments N/A Living Situation Apartment Lives With Spouse Patient Had Caregiver No Home Support No Caregiver Issues Financial Issues No Known Financial Issue Referral To The Financial Counselor Needed No Factors/Needs No D/C Needs Identified Pt/Rep Participated In Discharge Plan Yes Patient/Family Agress With Discharge Plan Yes Discharge Plan Comments TENTATIVE DISCHARGE PLAN IS FOR PATIENT TO RETURN HOME. DC Plan Status Initiated
[2020-07-29] MEDS: ENOXAPARIN 40 MG/0.4 ML SYR SUBQ SCH (11:37)
--- NOTE | 2020-07-29 12:26 | NUR ---
DISCHARGE PLANNING: THIS IS A 35 Y/O FEMALE PATIENT FROM HOME, WHO CAME IN DUE PERSISTENT LOWER BACK PAIN. INITIAL DIAGNOSIS OF BACK PAIN. PAST MEDICAL HISTORY INCLUDE DM. CURRENT LABS INCLUDE WBC 10.0, H/H 11.1/32.9, >150, NA/K 133/4.0, BUN/CREA 16/0.8, CRP 4.5, ALB 3.0. RAPID COVID TEST NEGATIVE. ON ROCEPHIN AND LOVENOX. ABD/PELVIS CT SHOWED LEFT OVARIAN CYST, 2.4CM PERIPHERAL PULMONARY NODULAR OPACITY RIGHT UPPER LOBE. CT CERVICAL SPINE SHOWED NO EVIDENCE OF ACUTE CERVICAL FRACTURE OR MALALIGNMENT. HEAD CT NEGATIVE. LUMBAR SPINE CT SHOWED SCATTERED THORACOLUMBAR SCHMORL'S NODES. CT THORACIC SPINE WITH CONTRAST SHOWED NO EVIDENCE OF ACUTE FRACTURE OR SUBLUXATION. MILD S SHAPED SCOLIOSIS OF THE THORACOLUMBAR SPINE, SEVERAL BILATERAL PERIPHERAL PULMONARY LESIONS, LARGEST MEASURING 2.5X1.8CM ON THE RIGHT AND 1.2X0.7CM ON THE LEFT. BILATERAL PULMONARY INFILTRATES AND/OR ATELECTASIS. DC PLAN BACK TO HOME ONCE STABLE. Addendum: 07/30/20 at 1011 by Debbie Galindo CM DC DIRECTOR OF ACCOUNTS RECEIVABLE: FAXED ORDER FOR OUTPATIENT BIOPSY TO [facility] Addendum: 07/30/20 at 1205 by Alejandra Lubin CM CONTACTED [facility] [phone] TO FOLLOW UP WITH THE REFERRAL. PER MARY, THEY DID NOT RECEIVE THE REFERRAL. REFERRAL SENT AGAIN TO [phone]. CONTACTED [facility] AT [phone], ABLE TO SPEAK TO SOCO. PER SOCO, SHE WILL TRANSFER ME TO RADIOLOGY DEPARTMENT. PER TYRONE, WILL BE CALLER NUMBER 4. AWAITING FOR A LIVE AGENT. Addendum: 07/30/20 at 1413 by Alejandra Lubin CM CONT: ABLE TO SPEAK TO TAMMY. SHE STATED TO FAX OVER REQUEST TO [phone]. SHE STATED THEY WILL BE NEEDING CD IMAGES WELL, SO THEIR RADIOLOGIST CAN REVIEW AND WILL DETERMINE IF THEY WILL DO THE PROCEDURE. SHE ALSO REQUESTED FOR AUTHORIZATION FROM THE INSURANCE. PER TAMMY, STATED THAT THE PROCEDURE WILL BE WITH CT AND NOT IR. SHE ALSO PROVIDED ME WITH CT CODE 89635 AND BIOPSY CODE 50425. REFERRAL SENT. RECEIVED A CALL BACK FROM MARY [facility], STATING THAT THEY DO NOT ARRANGE OUT PATIENT PROCEDURE AND HAVE TO TRANSFER ME TO RADIOLOGY DEPT [id number], SPOKE TO GONZÁLEZ. PER GONZÁLEZ, EMIL IS THE LAUNDRY OPERATOR FINISHING AND SHE WILL TRANSFER ME TO [facility]. PER EMIL, SHE WILL SEND ME AN EMAIL WITH RADIOLOGY CLEARANCE FORM AND COVER SHEET AND TO FAX IT BACK TO [phone]. EMIL ALSO REQUESTED FOR CD IMAGES. PER EMIL, THE PROCEDURE WILL BE DONE UNDER CT AND NOT IR. SHE REQUESTED TO EDIT THE ORDER TO CT. DR. FOLEY MADE AWARE. OK TO EDIT ORDER TO CT. JOSETTE DOVE [phone] OF [facility] MADE AWARE. SHE STATED SHE JUST NEED THE ORDER FAXED TO [phone]. ORDER AND UPDATED CLINICALS SENT TO THE PROVIDED NUMBER. PER JOSETTE DOVE, THEY ARE NOT CONTRACTED WITH [facility] BUT WITH [facility] AND WILL START WORKING ON THE AUTH WITH [facility]. WILL FOLLOW UP. Addendum: 07/30/20 at 1508 by Alejandra Lubin RECEIVED A CALL FROM JOSETTE DOVE OF [facility], STATING THAT [facility] IS REQUESTING TO ADD DIAGNOSIS TO THE ORDER. DR. NGUYEN MADE AWARE. Addendum: 07/30/20 at 1612 by Alejandra Lubin CM FOLLOWED UP WITH TAMMY [facility] RADIOLOGY REGARDING OUT PATIENT SCHEDULE. SHE STATED THEY JUST RECEIVED THE IMAGES AND IS IN THE PROCESS OF DOWNLOADING TO THEIR SYSTEM AND WILL HAVE THE RADIOLOGIST REVIEW. WILL CALL ME BACK ONCE RADIOLOGIST REVIEWED THE IMAGES. SHE STATED IT WILL NOT HAPPEN TODAY BUT WILL FOLLOW UP WITH ME TOMORROW. PER TAMMY, THEY RECEIVED THE AUTH FOR THE BIOPSY [id number] THE [address] DR. NGUYEN MADE AWARE. LEFT A VOICE MESSAGE TO JOSETTE DOVE OF [facility] [employer] [facility] [place] [address]. WILL FOLLOW UP. Addendum: 07/31/20 at 0915 by Alejandra Lubin CM PER TAMMY [facility] RADIOLOGY DEPT, THE PROCESS WILL TAKE UP TO 2 DAYS BECAUSE THEY STILL HAVE TO DOWNLOAD THE IMAGES AND THEIR RADIOLOGIST HAVE TO REVIEW. WILL CALL ME SOON RADIOLOGIST IS DONE REVIEWING THE IMAGES. WILL FOLLOW UP. Addendum: 07/31/20 at 1604 by Alejandra Lubin CM PER JOSETTE DOVE, THEY PROVIDED CT AUTH TO [facility]. Addendum: 07/31/20 at 1608 by Alejandra Lubin CM PER DR.. NGUYEN, HE WILL ORDER NEURO CONSULT AND REQUESTED IF WE CAN FIND OUT IF THE PATIENT HAS HISTORY OF DRUG ABUSE. CONTACTED JOSETTE DOVE OF [facility] TO CHECK IF THEY HAVE ANY RECORDS, NO ANSWER. LEFT MESSAGE. WILL FOLLOW UP. Addendum: 07/31/20 at 1612 by Alejandra Lubin CM RECEIVED A CALL BACK FROM JOSETTE DOVE OF [facility]. SHE STATED THAT THE PATIENT HAS HISTORY OF CVA, DEPRESSION, A CM ASSIGNED FOR PAIN, BUT NOT SEEING ANY AUTH FOR PAIN MANAGEMENT DOCTOR, RHEUMATOLOGY. SHE STATED SHE WILL REACH OUT TO THE CM ASSIGNED FOR PAIN AND WILL CALL ME BACK. Addendum: 08/01/20 at 0912 by Alejandra Lubin A PHONE CALL MADE FOR JOSETTE DOVE OF [facility] TO FOLLOW IF SHE HEARD BACK FROM THE CM PAIN MANAGEMENT, NO ANSWER. LEFT MESSAGE. CONTACTED [facility] RADIOLOGY DEPT AT [phone] opt 2 AND REQUESTED TO BE TRANSFERRED TO [place], NO ANSWER. LEFT MESSAGE. Addendum: 08/01/20 at 1105 by Alejandra Lubin CM RECEIVED A CALL FROM TAMMY AT [facility] RADIOLOGY DEPT, STATING THAT THE EARLIEST THEY CAN SCHEDULE THE PATIENT IS AUG 11, 2020 AT 0800. SHE STATED THAT THE PATIENT NEED TO HAVE A ICE SKATING TEACHER THAT DAY, NO FOOD FOR 8 HOURS, NO LIQUIDS FOR 4 HOURS, NO ASPIRIN, IBUPROFEN 5 DAYS PRIOR, COVID TESTING 72 HOURS PRIOR TO APPOINTMENT. SOMEONE FROM PRE OP DEPT WILL BE CALLING THE PATIENT FOR PREOP INSTRUCTIONS. ADDRESS AND TELEPHONE NUMBER FOR [facility] AND INSTRUCTION PROVIDED TO THE PRIMARY NURSE ROSEMARIE TO INSTRUCT THE PATIENT. Addendum: 08/01/20 at 1107 by Alejandra Lubin CM CHARGE NURSE WALTER AWARE. Addendum: 08/01/20 at 1503 by Alejandra Lubin CM LATE ENTRY: PER JOSETTE DOVE OF [facility], HAVE NOT HEARD BACK FROM THE CM ASSIGNED PRIOR AND SHE IS ON PTO AT THIS TIME. SHE STATED THAT SHE WILL REQUEST THEIR PHARMACIST TO RUN REPORT FOR DRUG USE AND WILL CALL ME BACK. MADE HER AWARE THAT WE THE APPOINTMENT AT [facility]. SHE STATED THAT SHE WILL REACH OUT TO DR. NGUYEN REGARDING PAIN MANAGEMENT FOLLOW UP AND HOME HEALTH FOR HOME SAFETY EVAL. DR. NGUYEN MADE AWARE. OK TO PUT IN ORDERS FOR HOME HEALTH, OB-SPRAY PILOT,PAIN MANAGEMENT AND MRI OUT PATIENT. ORDER TRANSCRIBED AND CARRIED. JOSETTE DOVE MADE AWARE. SHE STATED TO GO AHEAD AND FAX ORDER AND HER COORDINATOR WILL WORK ON IT. ORDERS SENT. WILL FOLLOW UP. Addendum: 08/01/20 at 1508 by Debbie Galindo ERIN DIRECTOR OF ACCOUNTS RECEIVABLE: FAXED ORDER FOR HOME HEALTH, MRI, OUT PATIENT PAIN MANAGEMENT, AND CUSTOM SKI MAKER FOLLOW UP TO FAYE BLOUNT
--- NOTE | 2020-07-29 14:00 | NUR ---
PT IS SLEEPING NOW AND IS IN SIDE LYING POSITION, NO SIGN OF DISTRESS NOTED.
[2020-07-29 16:00] VITALS: BP 120/72
[2020-07-29] MEDS ORDERED: MORPHINE SULFATE 2 MG/ML SYR IVP PRN (16:25)
--- NOTE | 2020-07-29 16:45 | NUR ---
DR. FOLEY MADE THE ROUNDS FOR PT AND PLACED ORDERS FOR SS.
[2020-07-29] MEDS: MORPHINE SULFATE 5 MG/ML VIAL IVP PRN ×2 (18:24→22:29)
--- NOTE | 2020-07-29 18:24 | NUR ---
PT COMPLAINED OF PAIN. OBTAINED TORADOL BUT PT REFUSED. WASTED WITH 2ND RN. OBTAINED MORPHINE FOR PAIN PER PT REQUEST. PT TOLERATED WELL. MEDICATION EDUCATION PERFORMED. PT VERBALIZED UNDERSTANDING. SAFETY MEASURES IN PLACE. WILL ENDORSE TO NURSE ASSIGNED
--- NOTE | 2020-07-29 19:25 | NUR ---
ENDORSED PT TO DIRECTOR PATIENT FINANCIAL SERVICES NURSE FOR CONTINUITY OF CARE.
--- NOTE | 2020-07-29 19:30 | NUR ---
RECEIVED BEDSIDE REPORT FROM DAY RN. PT IS ASLEEP IN BED CHEST RISE AND FALL NOTED. NO S/S OF RESP DISTRESS NOTED PT IS ON ROOM AIR. DX:BACK PAIN PT RECEIVED PRN 8MG MORPHINE APPROX 1 HR AGO. IV ON LAC 18G SL. SKIN IS INTACT. ON STRICT I&O. ON STANDARD PRECAUTION. SS TO BE TRANSFERRED FOR BIOPSY OF NODULE ON R LUNG. PT IS UNDER OBSERVATION. SAFETY MEASURES ARE IN PLACE. CALL LIGHT IS WITHIN REACH.
[2020-07-29 20:00] VITALS: BP 135/64
--- NOTE | 2020-07-29 20:29 | NUR ---
VITAL SIGNS ARE WITHIN NORMAL LIMITS. IV ABX NOW INFUSING PER ORDERS. MED EDUCATION GIVEN. PT SEEMS DROWSY BUT REPORTS BACK PAIN ENDORSED PAIN MEDICATION NOT DUE YET PT VERBALIZED UNDERSTANDING. CALL LIGHT IS WITHIN REACH. WILL CONTINUE TO MONITOR.
--- NOTE | 2020-07-29 21:01 | NUR ---
CHECKED ON PATIENT. PT IS SLEEPING IN BED WITH EYES CLOSED. NO S/S OF DISTRESS. CALL LIGHT IS WITHIN REACH.
--- NOTE | 2020-07-30 | NUR ---
ROUNDS MADE. PT IS SITTING UP REPORT SOME PAIN WITH MOVEMENT BUT TOLERABLE. ALL NEEDS MET. CALL LIGHT IS WITHIN REACH. WILL CONTINUE TO MONITOR.
--- NOTE | 2020-07-30 01:59 | NUR ---
ROUNDS MADE. PT IS LAYING COMFORTABLY IN BED WITH EYES CLOSED. CHEST RISE AND FALL NOTED. NO S/S OF DISTRESS. ALL NEEDS MET. CALL LIGHT IS WITHIN REACH.
[2020-07-30] MEDS: MORPHINE SULFATE 5 MG/ML VIAL IVP PRN ×2 (02:31→08:48)
[2020-07-30 04:00] VITALS: BP 121/68
--- NOTE | 2020-07-30 04:00 | NUR ---
VITAL SIGNS ARE WITHIN NORMAL LIMITS. ALL SAFETY MEASURES ARE IN PLACE. WILL CONTINUE TO MONITOR.
--- NOTE | 2020-07-30 06:00 | NUR ---
PATIENT SLEEPING COMFORTABLY IN BED WITH EYES CLOSED. CHEST RISE AND FALL NOTED. NO S/S OF DISTRESS. CALL LIGHT IS WITHIN REACH.
[2020-07-30 06:32] LABS: BASOPHILS % (AUTO) 0.3 % (0.0-2.0); EOSINOPHILS % (AUTO) 0.4 % (0.0-4.0); HEMATOCRIT 32.7 % (36-48); HEMOGLOBIN 10.8 g/dL (12.0-16.0); LYMPHOCYTES # (AUTO) 1.7 K/uL (2.5-16.5); LYMPHOCYTES % (AUTO) 14.6 % (20.5-51.1); MEAN CORPUSCULAR HEMOGLOBIN 27 pg (27-31); MEAN CORPUSCULAR HGB CONC 33 g/dL (33-37); MEAN CORPUSCULAR VOLUME 80.6 fL (80-94); MONOCYTES # (AUTO) 0.8 K/uL (0.8-1.0); MONOCYTES % (AUTO) 6.7 % (1.7-9.3); NEUTROPHILS # (AUTO) 8.9 K/uL (1.8-7.7); PLATELET COUNT (AUTO) 272 K/uL (140-450); RED BLOOD CELL COUNT(AUTO) 4.05 MIL/uL (4.20-5.40); WHITE BLOOD COUNT (AUTO) 11.4 K/uL (4.8-10.8)
[2020-07-30 07:12] LABS: ANION GAP 17.1 (8-16); CARBON DIOXIDE 25.4 mmol/L (21-32); CREATININE 0.8 mg/dL (0.6-1.3); POTASSIUM 4.5 mmol/L (3.5-5.1)
--- NOTE | 2020-07-30 07:20 | NUR ---
RECEIVED PT FROM DISPATCHER CHIEF COAL SLURRY NURSE, PT IS AWAKE IN BED, ON ROOM AIR, CONTINENT, SAFETY AND FALL PRECAUTIONS IN PLACE, WILL CONTINUE TO MONITOR.
--- NOTE | 2020-07-30 07:30 | NUR ---
GAVE BEDSIDE REPORT TO DAY RN. PT ENDORSED IN STABLE CONDITION.
[2020-07-30 08:00] VITALS: BP 159/75
[2020-07-30] MEDS: ENOXAPARIN 40 MG/0.4 ML SYR SUBQ SCH (08:07)
--- NOTE | 2020-07-30 08:10 | NUR ---
SCHEDULED MEDICATIONS ADMINISTERED, EDUCATION PROVIDED, PT VERBALIZED UNDERSTANDING, WILL CONTINUE TO MONITOR.
--- NOTE | 2020-07-30 08:58 | NUR ---
PAIN MEDICATION ADMINISTERED NOW, PT STATED 03/20 PAIN TO RUQ, BP 159/75, HR 10 RR 20, O2 90, WILL CONTINUE TO MONITOR.
[2020-07-30] MEDS ORDERED: MORPHINE SULFATE 5 MG/ML VIAL IVP PRN (11:15)
--- NOTE | 2020-07-30 13:17 | NUR ---
ADMINISTERED MORPHINE PER PROTOCOL, PAIN 04/19, 02 99%, BP 145/73, RR 20, EDUCATION PROVIDED, PT VERBALIZED UNDERSTANDING, WILL CONTINUE TO MONITOR.
[2020-07-30] MEDS ORDERED: VANCOMYCIN PER PHARMACY MC PRN (13:25)
--- NOTE | 2020-07-30 13:30 | NUR ---
MD ORDER TELEPHONE ORDER TO BEGIN VANCO ABX STOP ROCEPHIN, PHARMACY TO DOSE.
[2020-07-30] MEDS: VANCOMYCIN 1,000 MG in DEXTROSE 5% 250 ML IV SCH ×2 (14:37→21:20)
[2020-07-30 16:00] VITALS: BP 141/69
--- NOTE | 2020-07-30 17:21 | NUR ---
MORPHINE ADMINISTERED FOR 10/10 PAIN TO RUQ, BP 141/69, HR89 RR 22, C2 98% ON ROOM AIR, EDUCATION PROVIDED,PT VERBALIZED UNDERSTANDING, WILL CONTINUE TO MONITOR.
--- NOTE | 2020-07-30 17:37 | NUR ---
LATE ENTRY -- NORMAL SALINE INFUSION COMPLETED AT 19407/28/20
[2020-07-30] MEDS: CYCLOBENZAPRINE 10 MG TAB PO SCH (17:59)
--- NOTE | 2020-07-30 18:06 | NUR ---
SCHEDULED MEDICATION ADMINISTERED, EDUCATION PROVIDED, PT VERBALIZED UNDERSTANDING, WILL CONTINUE TO MONITOR.
--- NOTE | 2020-07-30 19:10 | NUR ---
ENDORSED PT TO EPIC WILLOW SPECIALIST NURSE FOR CONTINUITY OF CARE.
--- NOTE | 2020-07-30 19:11 | NUR ---
RECEIVED BEDSIDE REPORT FROM DAY RN. PT IS IS AWAKE LAYING L SIDE. NO S/S OF RESP DISTRESS NOTED PT IS ON ROOM AIR. DX:BACK PAIN PT RECEIVED PRN 10MG MORPHINE APPROX 2HR AGO. IV ON LAC 18G SL. SKIN IS INTACT. ON STRICT I&O. ON STANDARD PRECAUTION. SS TO BE TRANSFERRED FOR BIOPSY OF NODULE ON R LUNG. POC DISCUSSED WITH PT. SAFETY MEASURES ARE IN PLACE. CALL LIGHT IS WITHIN REACH.
[2020-07-30 20:00] VITALS: BP 156/78
[2020-07-30] MEDS ORDERED: MORPHINE SULFATE 10 MG/ML VIAL ONE (20:42)
[2020-07-30] MEDS: MORPHINE SULFATE 10 MG/ML SYR IVP PRN (20:46)
--- NOTE | 2020-07-30 20:46 | NUR ---
PRN MORPHINE GIVEN FOR BACK PAIN 10/10 PT TOLERATED WELL. ALL NEEDS MET. CALL LIGHT IS WITHIN REACH.
--- NOTE | 2020-07-30 22:29 | NUR ---
IV ON L AC 18G REMOVED D/T LEAKING. NEW IV STARTED ON RAC 20G ON FIRST ATTEMPT PT TOLERATED WELL. IV ABX INFUSING PER ORDERS.
[2020-07-31] MEDS ORDERED: MORPHINE SULFATE 10 MG/ML VIAL ONE ×5 (00:38→21:50)
[2020-07-31] MEDS: MORPHINE SULFATE 10 MG/ML SYR IVP PRN ×5 (00:41→21:56)
--- NOTE | 2020-07-31 00:41 | NUR ---
B/P STABLE ADMINISTERED PRN MORPHINE FOR BACK PAIN 10/ PT TOLERATED WELL. CALL LIGHT IS WITHIN REACH. WILL CONTINUE TO MONITOR.
--- NOTE | 2020-07-31 02:34 | NUR ---
ROUNDS MADE. PT IS SLEEPING IN BED WITH EYES CLOSED. CHEST RISE AND FALL NOTED. NO S/S OF DISTRESS. CALL LIGHT IS WITHIN REACH.
[2020-07-31 04:00] VITALS: BP 149/80
--- NOTE | 2020-07-31 04:00 | NUR ---
VITAL SIGNS ARE WITHIN NORMAL LIMITS. ALL SAFETY MEASURES ARE IN PLACE. CALL LIGHT IS WITHIN REACH. WILL CONTINUE TO MONITOR.
[2020-07-31] MEDS: VANCOMYCIN 1,000 MG in DEXTROSE 5% 250 ML IV SCH ×2 (05:57→14:27)
--- NOTE | 2020-07-31 05:57 | NUR ---
PT C/O BACK PAIN 10/10 ADMINISTERED PRN MORPHINE. ALL SAFETY MEASURES ARE IN PLACE. WILL CONTINUE TO MONITOR.
[2020-07-31 06:42] LABS: BASOPHILS # (AUTO) 0.1 K/uL (0.00-0.22); BASOPHILS % (AUTO) 0.6 % (0.0-2.0); EOSINOPHILS # (AUTO) 0.1 K/uL (0-0.4); EOSINOPHILS % (AUTO) 0.5 % (0.0-4.0); HEMATOCRIT 31.3 % (36-48); HEMOGLOBIN 10.5 g/dL (12.0-16.0); LYMPHOCYTES # (AUTO) 1.4 K/uL (2.5-16.5); LYMPHOCYTES % (AUTO) 12.1 % (20.5-51.1); MEAN CORPUSCULAR HEMOGLOBIN 27 pg (27-31); MEAN CORPUSCULAR HGB CONC 34 g/dL (33-37); MEAN CORPUSCULAR VOLUME 79.6 fL (80-94); MONOCYTES # (AUTO) 0.7 K/uL (0.8-1.0); MONOCYTES % (AUTO) 6.1 % (1.7-9.3); NEUTROPHILS # (AUTO) 9.6 K/uL (1.8-7.7); NEUTROPHILS % (AUTO) 80.7 % (42.2-75.2); PLATELET COUNT (AUTO) 282 K/uL (140-450); RED BLOOD CELL COUNT(AUTO) 3.93 MIL/uL (4.20-5.40); RED CELL DISTRIBUTION WIDTH 16.7 % (11.6-13.7); WHITE BLOOD COUNT (AUTO) 11.9 K/uL (4.8-10.8)
[2020-07-31 06:54] LABS: ANION GAP 15.5 (8-16); CARBON DIOXIDE 22.3 mmol/L (21-32); CREATININE 0.6 mg/dL (0.6-1.3); POTASSIUM 3.8 mmol/L (3.5-5.1)
--- NOTE | 2020-07-31 07:30 | NUR ---
GAVE BEDSIDE REPORT TO DAY RN. PT ENDORSED IN STABLE CONDITION.
--- NOTE | 2020-07-31 07:30 | NUR ---
RECEIVED HANDOFF REPORT FROM NIGHT NURSE. POC DISCUSSED AND REVIEWED. PT VERBALIZED BACK PAIN 8/10 PAIN SCALE RADIATING TO ABDOMEN. NO SOB NOTED. ON ROOM AIR. DENIES CHEST PAIN. RIGHT ARM PIV INTACT AND PATENT. AMBULATORY, BRP. WILL MEDICATE PRN MED ORDERED.
[2020-07-31 08:00] VITALS: BP 117/71
[2020-07-31] MEDS: ENOXAPARIN 40 MG/0.4 ML SYR SUBQ SCH (08:11)
[2020-07-31] MEDS ORDERED: MORPHINE SULFATE 2 MG/ML SYR ONE (08:22)
[2020-07-31] MEDS ORDERED: MORPHINE SULFATE 4 MG/ML SYR ONE (08:22)
[2020-07-31] MEDS: CYCLOBENZAPRINE 10 MG TAB PO SCH ×3 (08:33→17:10)
[2020-07-31 12:00] VITALS: BP 152/80
[2020-07-31] MEDS ORDERED: KETOROLAC 60 MG/2 ML VIAL IM SCH (15:30)
[2020-07-31 16:00] VITALS: BP 159/77
--- NOTE | 2020-07-31 19:21 | NUR ---
ENDORSED PT TO HEAD PUMPER RN. PT IS STABLE. NO CHANGE OF CONDITION. POC DISCUSSED AND REVIEWED.
--- NOTE | 2020-07-31 19:22 | NUR ---
RECEIVED BEDSIDE REPORT FROM DAY RN. PT IS IS AWAKE LAYING L SIDE. NO S/S OF RESP DISTRESS NOTED PT IS ON ROOM AIR. DX:BACK PAIN CONTROLLED WITH MEDICATIONS. IV ON RAC 20G SL. SKIN IS INTACT. ON STRICT I&O. ON STANDARD PRECAUTION. SS TO BE TRANSFERRED FOR BIOPSY OF NODULE ON R LUNG. POC DISCUSSED WITH PT. SAFETY MEASURES ARE IN PLACE. CALL LIGHT IS WITHIN REACH.
[2020-07-31 20:00] VITALS: BP 157/83
[2020-07-31] MEDS: VANCOMYCIN 1,500 MG in DEXTROSE 5% 500 ML IV SCH (21:56)
--- NOTE | 2020-07-31 21:56 | NUR ---
PRN MORPHINE GIVEN FOR BACK PAIN 10/10 PT TOLERATED WELL. ALL NEEDS MET. CALL LIGHT IS WITHIN REACH.
--- NOTE | 2020-08-01 | NUR ---
ROUNDS MADE PT IS SLEEPING COMFORTABLY IN BED WITH EYES CLOSED. CHEST RISE AND FALL NOTED. CALL LIGHT IS WITHIN REACH.
[2020-08-01] MEDS: KETOROLAC 30 MG/ML VIAL IVP PRN ×2 (01:11→16:23)
--- NOTE | 2020-08-01 01:11 | NUR ---
ADMINISTERED PRN TORADOL FOR BACK PAIN. PT TOLERATED WELL. ALL SAFETY MEASURES ARE IN PLACE. WILL CONTINUE TO MONITOR.
--- NOTE | 2020-08-01 02:15 | NUR ---
PATIENT IS SLEEPING COMFORTABLE IN BED WITH EYES CLOSED WITH CHEST RISE AND FALL NOTED. NO S/S OF DISTRESS. WILL CONTINUE TO MONITOR.
[2020-08-01 04:00] VITALS: BP 136/77
[2020-08-01] MEDS ORDERED: MORPHINE SULFATE 10 MG/ML VIAL ONE ×3 (05:04→13:29)
[2020-08-01] MEDS: MORPHINE SULFATE 10 MG/ML SYR IVP PRN (05:07)
[2020-08-01] MEDS: VANCOMYCIN 1,500 MG in DEXTROSE 5% 500 ML IV SCH ×2 (05:07→14:00)
--- NOTE | 2020-08-01 05:07 | NUR ---
PRN MORPHINE GIVEN FOR BACK PAIN 04/19. BECCA ABX GIVEN PER ORDERS. ALL SAFETY MEASURES ARE IN PLACE. WILL CONTINUE TO MONITOR.
--- NOTE | 2020-08-01 07:28 | NUR ---
RECEIVED BEDSIDE REPORT FROM DOUGHNUT FRYER RN FOR CONTINUITY OF CARE. PATIENT ASLEEP IN RIGHT LATERAL POSITION. VISIBLE CHEST RISE AND FALLS. IV SITE RIGHT AC 20G TKO. SKIN INTACT. NO ACUTE DISTRESS NOTED. PER DOUGHNUT FRYER RN. PATIENT HAS LOWER BACK PAIN, HAS PRN MORPHINE ORDER. WILL CONTINUE TO MONITOR AND ADMINISTER PAIN MED NEEDED.
--- NOTE | 2020-08-01 07:38 | NUR ---
GAVE BEDSIDE REPORT TO DAY RN. PT ENDORSED IN STABLE CONDITION.
[2020-08-01 08:00] VITALS: BP 101/75
[2020-08-01] MEDS: CYCLOBENZAPRINE 10 MG TAB PO SCH ×2 (09:46→13:47)
[2020-08-01] MEDS: ENOXAPARIN 40 MG/0.4 ML SYR SUBQ SCH (09:48)
--- NOTE | 2020-08-01 11:50 | NUR ---
PATIENT STANDING AT SIDE OF THE BED. DENIES DISCOMFORT AT THIS TIME. [facility] APPOINTMENT INFORMED, INFO GIVEN. PATIENT VERBALIZED UNDERSTANDING. NO ACUTE DISTRESS NOTED AT THIS TIME. WILL CONTINUE TO MONITOR.
[2020-08-01 13:47] VITALS: BP 152/80
--- NOTE | 2020-08-01 13:47 | NUR ---
MORPHINE GIVEN VIA IVP FOR WHOLE BODY PAIN, 04/19. PATIENT CRYING OUT. INSTRUCTED PATIENT ABOUT THE NON PHARMACOLOGICAL PAIN MANAGEMENT. INFORMED PATIENT RELAXATION TECHNIQUES. SAFETY MEASURES IN PLACE, WILL CONTINUE TO MONITOR.
--- NOTE | 2020-08-01 16:30 | NUR ---
DISCHARGE INSTRUCTIONS PROVIDED. DISCHARGE PROTOCOL FOLLOWED. INFORMED PATIENT THAT SHE NEEDS TO FOLLOW UP WITH THE APPOINTMENT FOR MRI AND SALES ORDER ADMINISTRATOR WILL HELP TO WORK WITH OTHER REFERRALS. VERBALIZED UNDERSTANDING. PATIENT'S IS ON THE WAY TO ACUTE COORDINATOR THE PATIENT.
--- NOTE | 2020-08-01 16:40 | NUR ---
WALKED PATIENT OUT OF THE HOSPITAL. PATIENT'S PICKED UP THE PATIENT. IN STABLE CONDITION. STAFFS BEEN INFORMED.
== END 2020-08-01 16:40 | disposition home health service (06) | DRG 690 ==
LOC: MED 17:33 → MMU 07-29 04:50 → OBSVTOIN 07-30 17:27
PROVIDERS: ADMIT Hospitalist; ATTEND Hospitalist
DX: N39.0 Urinary tract infection, site not specified (principal); Z20.822 Contact with and (suspected) exposure to COVID-19; N83.202 Unspecified ovarian cyst, left side; M41.9 Scoliosis, unspecified; E11.9 Type 2 diabetes mellitus without complications; D64.9 Anemia, unspecified; M19.90 Unspecified osteoarthritis, unspecified site; J98.4 Other disorders of lung; M54.5 Low back pain; G89.29 Other chronic pain; Z60.2 Problems related to living alone; E66.9 Obesity, unspecified; Z68.38 Body mass index [BMI] 38.0-38.9, adult
CPT/HCPCS: 36415; 70450; 71045; 72125; 72129; 72131; 72132; 76770; 80048; 80053; 80202; 80305; 81001; 82550; 82553; 83605; 83874; 85025; 85610; 85651; 85730; 86140; 87040; 87086; 87186; 93005; 96361; 96365; 96375; 97110; 97161-GP; 99285; G0378; J0696; J1170; J1200; J1650; J1885; J2060; J2270; J2405; J3370; J7030; J7060; Q9967

== ENCOUNTER 2020-08-14 05:10 | Emergency (ER) | payer OTHER, SELFPAY ==
[~2020-08-14] VITALS: Ht 167.6 cm; Wt 102.5 kg
[2020-08-14 05:17] VITALS: BP 142/87
--- NOTE | 2020-08-14 05:17 | NUR ---
TO BED AMBULATORY
--- NOTE | 2020-08-14 05:28 | NUR ---
35 YO FEMALE C/O RIGHT ABD PAIN AND HEARTBURN SINCE YESTERDAY. PAIN DOES NOT RADIATE ANYWHERE ELSE.
[2020-08-14 06:20] LABS: BASOPHILS # (AUTO) 0.1 K/uL (0.00-0.22); BASOPHILS % (AUTO) 0.7 % (0.0-2.0); EOSINOPHILS # (AUTO) 0.1 K/uL (0-0.4); EOSINOPHILS % (AUTO) 0.5 % (0.0-4.0); HEMATOCRIT 31.9 % (36-48); HEMOGLOBIN 10.8 g/dL (12.0-16.0); LYMPHOCYTES # (AUTO) 1.1 K/uL (2.5-16.5); LYMPHOCYTES % (AUTO) 11.3 % (20.5-51.1); MEAN CORPUSCULAR HEMOGLOBIN 27 pg (27-31); MEAN CORPUSCULAR HGB CONC 34 g/dL (33-37); MEAN CORPUSCULAR VOLUME 78.4 fL (80-94); MONOCYTES # (AUTO) 0.5 K/uL (0.8-1.0); MONOCYTES % (AUTO) 4.6 % (1.7-9.3); NEUTROPHILS # (AUTO) 8.4 K/uL (1.8-7.7); NEUTROPHILS % (AUTO) 82.9 % (42.2-75.2); PLATELET COUNT (AUTO) 266 K/uL (140-450); RED BLOOD CELL COUNT(AUTO) 4.07 MIL/uL (4.20-5.40); RED CELL DISTRIBUTION WIDTH 16.4 % (11.6-13.7); WHITE BLOOD COUNT (AUTO) 10.1 K/uL (4.8-10.8)
[2020-08-14] MEDS: MORPHINE SULFATE 4 MG/ML SYR IVP ONE ×2 (06:22→08:37)
[2020-08-14] MEDS: ONDANSETRON 4 MG/2 ML VIAL IVP ONE (06:22)
[2020-08-14] MEDS: NACL 0.9% 1,000 ML IV ONE (06:24)
--- NOTE | 2020-08-14 06:25 | NUR ---
PT TAKEN TO RAD VIA WHEELCHAIR
[2020-08-14 06:45] LABS: CARBON DIOXIDE 30.9 mmol/L (21-32); CREATININE 0.9 mg/dL (0.6-1.3); POTASSIUM 3.9 mmol/L (3.5-5.1); TOTAL BILIRUBIN 0.8 mg/dL (0.0-1.0)
--- NOTE | 2020-08-14 06:48 | NUR ---
Glucose 448--critical value received from lab. Dr Beckwith made aware.
[2020-08-14 07:05] LABS: BILIRUBIN,URINE NEGATIVE (NEGATIVE); BLOOD, URINE NEGATIVE (NEGATIVE); COLOR,URINE YELLOW (YELLOW); NITRITE, URINE NEGATIVE (NEGATIVE); PH,URINE 7.5 (5.0-9.0); UGLUCOSE 3+ (NEGATIVE)
[2020-08-14 07:14] LABS: LEUKOCYTE ESTERASE ,URINE TRACE (NEGATIVE); RBC,URINE 0-5 /HPF (0-5)
[2020-08-14 07:15] LABS: APPEARANCE,URINE SLIGHTLY HAZY (CLEAR)
--- NOTE | 2020-08-14 07:15 | NUR ---
REPORT RECIEVED FROM YARI DC. TRANSFER OF CARE AT THIS TIME.
--- NOTE | 2020-08-14 07:22 | NUR ---
PT RESTING IN BED, 5/10 RLQ SHARP PAIN AT THIS TIME. DENIES NEED FOR PAIN MANAGEMENT, EQUAL CHEST RISE AND FALL. PT PLACED ON RADIOLOGIC TECHNOLOGIST MAMMOGRAM/PULSE OX. BED LOCKED AND IN LOWEST POSITION. PT GIVEN ICE CUBES AFTER DOC APPROVAL.
--- NOTE | 2020-08-14 07:55 | NUR ---
US AT BEDSIDE
--- NOTE | 2020-08-14 08:30 | NUR ---
PT TEARFUL AFTER US. REPORTS 10/10 SHARP RLQ PAIN, ASKING FOR PAIN MANAGEMENT. ERMD MADE AWARE.
--- NOTE | 2020-08-14 08:45 | NUR ---
pt reports decreased pain, nadr.
[2020-08-14 08:59] VITALS: BP 157/95
--- NOTE | 2020-08-14 09:00 | NUR ---
Patient discharged with v/s stable. Written and verbal after care instructions given and explained. Patient alert, oriented and verbalized understanding of instructions. Ambulatory with steady gait. All questions addressed prior to discharge. ID band removed. Patient advised to follow up with PMD. Rx of zofran and norco given. Patient educated on indication of medication including possible reaction and side effects. Opportunity to ask questions provided and answered.
== END 2020-08-14 09:00 | disposition home or self-care (01) ==
LOC: MED 05:10
DX: R10.30 Lower abdominal pain, unspecified (principal); E11.9 Type 2 diabetes mellitus without complications
CPT/HCPCS: 36415; 74176; 76830; 76856; 80053; 81001; 81025; 83690; 85025; 87086; 93976; 96361; 96374; 96375; 96376; 99285; J2270; J2405; J7030

== ENCOUNTER 2020-08-19 20:06 | Emergency (ER) | payer OTHER, SELFPAY ==
[~2020-08-19] VITALS: Ht 167.6 cm; Wt 102.5 kg
[2020-08-19 20:20] VITALS: BP 154/104
--- NOTE | 2020-08-19 20:47 | NUR ---
35 YR OLD FEMALE PRESENTED TO THE ER WITH CC OF RIGHT FLANK PAIN. PT IS AOX4. PT STATES STABBING NON-RADIATING 10/10 RIGHT FLANK PAIN THAT STARTED 5 DAYS AGO. PT ABD IS ROUND, HAS ACTIVE BOWEL SOUNDS IN ALL 4 QUADRANTS, AND HAS PAIN UPON PALPATION ON RIGHT SIDE. PT STATES BEING SEEN AT "[facility]" LAST NIGHT AND WAS TOLD BY "[facility]" THAT SHE HAS KIDNEY INFECTION AND BLADDER INFECTION. BED IS LOCKED IN LOWEST POSITION WITH 2 SIDE RAILS UP FOR SAFETY. WILL CONTINUE TO MONITOR. HISTORY- DIABETES ALLERGIES- NONE
--- NOTE | 2020-08-19 21:05 | NUR ---
ERMD at bedside for medical evaluation.
[2020-08-19] MEDS ORDERED: KETOROLAC 30 MG/ML VIAL IVP ONE (21:10)
[2020-08-19] MEDS ORDERED: MORPHINE SULFATE 4 MG/ML SYR IVP ONE ×2 (21:10→22:50)
[2020-08-19] MEDS ORDERED: ONDANSETRON 4 MG/2 ML VIAL IVP ONE (21:10)
[2020-08-19] MEDS ORDERED: cefTRIAXone 1,000 MG VIAL ONE (21:16)
--- NOTE | 2020-08-19 21:24 | NUR ---
BLOOD LABS COLLECTED AND HANDED TO BAKERY SALES CLERK.
--- NOTE | 2020-08-19 21:24 | NUR ---
CHILDHOOD TEACHER AT BEDSIDE.
[2020-08-19 21:31] LABS: BASOPHILS % (AUTO) 0.6 % (0.0-2.0); EOSINOPHILS # (AUTO) 0.1 K/uL (0-0.4); EOSINOPHILS % (AUTO) 1.1 % (0.0-4.0); HEMATOCRIT 31.5 % (36-48); HEMOGLOBIN 10.5 g/dL (12.0-16.0); LYMPHOCYTES # (AUTO) 1.9 K/uL (2.5-16.5); LYMPHOCYTES % (AUTO) 24.3 % (20.5-51.1); MEAN CORPUSCULAR HEMOGLOBIN 26 pg (27-31); MEAN CORPUSCULAR HGB CONC 33 g/dL (33-37); MONOCYTES # (AUTO) 0.5 K/uL (0.8-1.0); NEUTROPHILS # (AUTO) 5.3 K/uL (1.8-7.7); PLATELET COUNT (AUTO) 259 K/uL (140-450); RED BLOOD CELL COUNT(AUTO) 4.04 MIL/uL (4.20-5.40); WHITE BLOOD COUNT (AUTO) 7.8 K/uL (4.8-10.8)
[2020-08-19 21:49] LABS: ALBUMIN 3.1 g/dL (3.4-5.0); ANION GAP 12.9 (8-16); CREATININE 0.8 mg/dL (0.6-1.3); POTASSIUM 3.9 mmol/L (3.5-5.1); TOTAL BILIRUBIN 0.9 mg/dL (0.0-1.0)
--- NOTE | 2020-08-19 22:11 | NUR ---
Pt c/o of 10/10 lower back pain , post pain medication administration. YADIRAD made aware.
--- NOTE | 2020-08-19 22:11 | NUR ---
Pt provided w/ urine specimen cup for encouragement of urine sample.
--- NOTE | 2020-08-19 22:23 | NUR ---
PT PROVIDED WITH CUP OF WATER.
--- NOTE | 2020-08-19 22:28 | NUR ---
PT AMBULATED TO RESTROOM.
--- NOTE | 2020-08-19 22:32 | NUR ---
PT AMBULATED BACK TO BED FROM RESTROOM.
--- NOTE | 2020-08-19 22:35 | NUR ---
URINE SAMPLE COLLECTED AND HANDED TO POTATO PICKER.
--- NOTE | 2020-08-19 22:48 | NUR ---
PT FOUND AWAKE SITTING ON BED. PT STATES 10/10 RIGHT FLANK AND LOWER BACK PAIN. PT DENIES OTHER MEDICAL COMPLAINTS. BED LOCKED IN LOWEST POSITION. WILL CONTINUE TO MONITOR.
[2020-08-19 22:49] LABS: APPEARANCE,URINE HAZY (CLEAR); BILIRUBIN,URINE 1+ (NEGATIVE); BLOOD, URINE 2+ (NEGATIVE); COLOR,URINE YELLOW (YELLOW); LEUKOCYTE ESTERASE ,URINE NEGATIVE (NEGATIVE); NITRITE, URINE NEGATIVE (NEGATIVE); UGLUCOSE 3+ (NEGATIVE)
[2020-08-19 23:04] LABS: RBC,URINE 0-5 /HPF (0-5); WBC,URINE >25 (MANY) /HPF (0-5)
[2020-08-19] MEDS ORDERED: ACET-5629 PO (23:23)
--- NOTE | 2020-08-19 23:45 | NUR ---
BLOOD CULTURES COLLECTED AND HANDED TO LAB.
--- NOTE | 2020-08-19 23:47 | NUR ---
SUPERVISOR INSULATION AT BEDSIDE.
--- NOTE | 2020-08-19 23:52 | NUR ---
RUMA SWAB COLLECTED AND HANDED TO LAB.
--- NOTE | 2020-08-20 00:27 | NUR ---
SPOKE TO PERSONAL CARE ATTENDANT AND UPDATED ON PT STATUS.
--- NOTE | 2020-08-20 00:40 | NUR ---
PT FOUND AWAKE STANDING NEXT TO BED. PT STATES NO NAUSEA BUT STATES 10/10 LOWER BACK PAIN. PT HEART RATE AT 114. ERMD AWARE OF PT STATUS.
[2020-08-20] MEDS ORDERED: ACETAMINOPHEN EXTRA STRENGTH 500 MG TAB PO ONE (00:45)
--- NOTE | 2020-08-20 03:04 | NUR ---
SPOKE WITH PROJECTION TECHNICIAN "LIVIER" AND UPDATE ON PT STATUS.
--- NOTE | 2020-08-20 03:22 | NUR ---
PT FOUND AWAKE SITTING ON BED. PT STATES 10/10 LOWER BACK PAIN. PT DENIES OTHER MEDICAL COMPLAINTS. BED LOCKED IN LOWEST POSITION. WILL CONTINUE TO MONITOR.
--- NOTE | 2020-08-20 03:33 | NUR ---
SPOKE WITH OLDER WORKER SPECIALIST "LIVIER" TO UPDATE PT STATUS AND PER "LIVIER" TO CALL BACK AT [phone] RESULT IS READY.
--- NOTE | 2020-08-20 03:45 | NUR ---
PT STATES 10/10 LOWER BACK PAIN WITH NAUSEA. EMESIS BAG PROVIDED TO PT. HORACE AWARE.
--- NOTE | 2020-08-20 03:49 | NUR ---
PT TAKEN TO CT VIA WHEELCHAIR BY FANCY PACKER.
--- NOTE | 2020-08-20 03:57 | NUR ---
PT RETURNED TO BED FROM CT VIA WHEELCHAIR.
--- NOTE | 2020-08-20 04:27 | NUR ---
PT WAS FOUND SITTING ON BED. PT STATES 10/10 LOWER BACK PAIN WITH BURNING SENSATION. ERMD AWARE. BED IS LOCKED IN LOWEST POSITION. WILL CONTINUE TO MONITOR.
--- NOTE | 2020-08-20 04:32 | NUR ---
ERMD AT BEDSIDE FOR MEDICAL EVALUATION.
--- NOTE | 2020-08-20 05:04 | NUR ---
PT STANDING AT BEDSIDE CRYING STATING SHE IS IN CONSTANT PAIN IN HER BACK, PAIN 10/10, A BURNING SENSATION. WHEN ASKED WHAT SHE TAKES AT HOME FOR PAIN PT STATED PERCOCET. MD DENNIS NOTIFIED OF PT'S CURRENT PAIN LEVEL AND COMPLAINITS
[2020-08-20] MEDS ORDERED: IBUPROFEN 800 MG TAB PO SCH (05:05)
[2020-08-20] MEDS ORDERED: diphenhydrAMINE 50 MG/ML VIAL IVP SCH (05:05)
[2020-08-20] MEDS ORDERED: ONDANSETRON 4 MG/2 ML VIAL IVP ONE (06:10)
--- NOTE | 2020-08-20 06:16 | NUR ---
SPOKE WITH CCO "LIVIER" TO UPDATE PT STATUS AND PER "LIVIER" TO CALL BACK AT [phone] WHEN ULTRASOUND RESULT RESULT IS READY.
--- NOTE | 2020-08-20 06:19 | NUR ---
PT FOUND AWAKE SITTING ON BED. PT STATES 10/10 LOWER BACK PAIN THAT IS BURNING AND STATES HAVING NAUSEA. PT ASKED ABOUT POSSIBLE REMOVAL OF IV AND AMA. ERMD INFORMED.
--- NOTE | 2020-08-20 07:00 | NUR ---
SPOKE WITH ENVIRONMENTAL HEALTH AND SAFETY LEADER "LIVIER" TO UPDATE PT STATUS AND PER "LIVIER" TO FAX ULTRASOUND AND CT RESULTS.
--- NOTE | 2020-08-20 07:16 | NUR ---
TRANSFER OF CARE REPORT GIVEN TO KAYLEIGH GREENBERG.
--- NOTE | 2020-08-20 07:27 | NUR ---
PT RESTING WTIH EYES CLOSED, BREATHING EVEN AND UNLABORED. NO DISTRESS NOTED. WILL CONTINUE TO MONITOR
--- NOTE | 2020-08-20 07:39 | NUR ---
BP 172/99, HR 96. PT CRYING IN ROOM ERMD AWARE
--- NOTE | 2020-08-20 07:44 | NUR ---
ERMD AT BEDSIDE
[2020-08-20] MEDS ORDERED: MORPHINE SULFATE 4 MG/ML SYR IVP SCH (07:50)
--- NOTE | 2020-08-20 08:12 | NUR ---
PT RESTING WITH EYES CLOSED, BREATHING EVEN AND UNLABORED. NO DISTRESS NOTED.
[2020-08-20] MEDS ORDERED: MORPHINE SULFATE 4 MG/ML SYR IVP ONE (08:45)
--- NOTE | 2020-08-20 10:15 | NUR ---
PT SIGNED CONSENT FOR TRANSFER, STATES SHE IS FEELING PAIN MUCH MORE TOLERABLE
--- NOTE | 2020-08-20 10:30 | NUR ---
Patient to be transferred to [facility]. Is being transferred due to higher level of care. Receiving facility has accepting physician and available space. ER physician has signed transfer form. Patient or responsible green party has agreed to transfer and signed form. Patient belongings inventoried and will be sent with patient. Copy of nursing notes, lab reports, EKG, Physicians Orders and X-rays to be sent with patient. Report called to Kyleigh at receiving facility. Ambulance service has been called for transfer.
[2020-08-20 11:19] VITALS: BP 170/98
--- NOTE | 2020-08-20 11:19 | NUR ---
[facility] AT BEDSIDE TO TRANSFER PT
--- NOTE | 2020-08-20 11:19 | NUR ---
PT TAKEN BY KATIE
== END 2020-08-20 11:19 | disposition designated cancer center or children's hospital (05) ==
LOC: MED 20:06
DX: N12 Tubulo-interstitial nephritis, not specified as acute or chronic (principal); Z20.822 Contact with and (suspected) exposure to COVID-19; R11.2 Nausea with vomiting, unspecified
CPT/HCPCS: 36415; 74176; 76705; 80053; 81001; 82150; 83605; 83690; 84703; 85025; 86140; 87040; 87426; 96365; 96375; 96376; 99285; J0696; J1200; J1885; J2270; J2405; J7060